=== PATIENT | male | born 1965 | race Caucasian/White ===

== ENCOUNTER 2017-08-09 10:02 | Emergency (ER) | payer BC ==
--- NOTE | 2017-08-09 10:16 | ED.PDOC ---
History of Present Illness - General Chief Complaint: Bite: Animal/Insect/Human Stated Complaint: adrianne bite left forearm Time Seen by Provider: 08/09/17 10:12 Source: patient Exam Limitations: no limitations - History of Present Illness Initial Comments: Shun North 51 y/o male stated that he was bitten on the left forearm by adrianne last night at home then ths am had pain /redness mold swelling whre he was bitten.No fever ,no numbness. Timing/Duration: other - last night Severity: moderate Location: extremities - left forearm Improving Factors: movement Worsening Factors: rest Associated Symptoms: other - see hpi Allergies/Adverse Reactions: Allergies Penicillins Allergy (Verified 08/09/17 10:36) Home Medications: Ambulatory Orders Acetamin W/Cod #3 Tab [Tylenol w/CODEINE #3] 1 ea PO TID PRN #7 tab 08/09/17 Doxycycline Hyclate 100 mg PO BID #14 cap 08/09/17 Doxycycline Hyclate [Doxycycline Hyclate Dr] 100 mg PO BID #14 tab 08/09/17 predniSONE 20 mg PO DAILY #5 tab 08/09/17 Review of Systems - Review of Systems Constitutional: States: no symptoms reported EENTM: States: no symptoms reported Respiratory: States: no symptoms reported Cardiology: States: no symptoms reported Gastrointestinal/Abdominal: States: no symptoms reported Skin: States: see HPI All other Systems: Reviewed and Negative, No Change from Baseline Past Medical History (General) - Patient Medical History Hx Gastroesophageal Reflux: Yes Hx Other PMH: Yes - dyslipedemia Surgical History: other - C-spine - Social History Hx Alcohol Use: No Hx Substance Use: No Hx Physical Abuse: No Hx Emotional Abuse: No Family Medical History - Family History Mother Living Status: Hx Cardiac Disease: Yes - dad-PA Hx Family Cancer: Yes - breast Physical Exam - Physical Exam General Appearance: Alert, Comfortable, No apparent distress Eyes, Ears, Nose, Throat Exam: normal ENT inspection Neck: full range of motion, supple Cardiovascular/Chest: normal peripheral pulses, regular rate, rhythm, no murmur Respiratory: chest non-tender, lungs clear, normal breath sounds Gastrointestinal/Abdominal: normal bowel sounds, non tender, soft, no organomegaly Back Exam: no CVA tenderness Extremity: non-tender, no pedal edema, no calf tenderness Neurologic: no motor/sensory deficits, alert, oriented x 3 Skin Exam: warm/dry, normal color Skin Problem Location: upper extremities - left forearm Skin Character: erythema - localized , swelling - mild Lymphatic: no adenopathy Progress - Progress Progress: 08/09/17 10:41 Vital Signs - 8 hr 08/09/17 10:07 Temperature 97.3 F L Pulse Rate [ 82 left brachial] Respiratory 20 Rate Blood Pressure 146/90 [left brachial] O2 Sat by Pulse 99 Oximetry Departure - Departure Clinical Impression: Cellulitis of forearm, left Centipede bite Qualifiers: Encounter type: initial encounter Injury intent: accidental or unintentional Qualified Code(s): T63.411A - Toxic effect of venom of centipedes and venomous millipedes, accidental (unintentional), initial encounter Time of Disposition: 10:35 Disposition: Discharge to Home or Self Care Condition: Good Departure Forms: ED Discharge - Pt. Copy, Patient Portal Self Enrollment Instructions: DI for Insect Bites and Stings Prescriptions: Acetamin W/Cod #3 Tab [Tylenol w/CODEINE #3] 1 ea PO TID PRN #7 tab PRN Reason: Pain Doxycycline Hyclate [Doxycycline Hyclate Dr] 100 mg PO BID #14 tab Doxycycline Hyclate 100 mg PO BID #14 cap predniSONE 20 mg PO DAILY #5 tab Home Medications: Ambulatory Orders Acetamin W/Cod #3 Tab [Tylenol w/CODEINE #3] 1 ea PO TID PRN #7 tab 08/09/17 Doxycycline Hyclate 100 mg PO BID #14 cap 08/09/17 Doxycycline Hyclate [Doxycycline Hyclate Dr] 100 mg PO BID #14 tab 08/09/17 predniSONE 20 mg PO DAILY #5 tab 08/09/17 Additional Instructions: Return to ER as needed;Follow up with primary Md 12 Aug 2017as needed May use ice pack 20 minutes 3 x a day during waking hours only for 2 days,elevate left forearm 20 degrees at bedtime as needed
[2017-08-09] MEDS ORDERED: TETANUS,DIPHTHERIA,PERTUSSIS 1 EA SYG IM ONE (10:34)
[2017-08-09 10:36] VITALS: TEMP 97.3
[2017-08-09 11:08] VITALS: BP 142/88; O2SAT 98
== END 2017-08-09 11:05 | disposition home or self-care (01) ==
LOC: ER 10:02
DX: T63.411A Toxic effect of venom of centipedes and venomous millipedes, accidental (unintentional), initial encounter (principal); L03.114 Cellulitis of left upper limb; K21.9 Gastro-esophageal reflux disease without esophagitis; E78.5 Hyperlipidemia, unspecified; Z88.0 Allergy status to penicillin; Z23 Encounter for immunization; Y92.009 Unspecified place in unspecified non-institutional (private) residence as the place of occurrence of the external cause